=== PATIENT | male | born 1965 | race Caucasian/White ===

== ENCOUNTER 2020-11-06 12:13 | Day surgery (SDC) | payer OTHER, SELFPAY ==
[2020-11-06] VITALS (7 sets, daily range): BP systolic 119–138; BP diastolic 69–89; PULSE 60–73; RESP 9–16; TEMP 36.2–36.9; O2SAT 97–99; BMI 36.9
[2020-11-06] MEDS: LACTATED RINGERS 1,000 ML 200 ML IV (12:53)
--- NOTE | 2020-11-06 13:08 | PM.HP.1 ---
History of Present Illness History of Present Illness Date Patient Seen: 11/06/20 Time Patient Seen: 13:08 [place] [facility] [place]: The patient presents for colonoscopy following a positive fecal immuno chemical test. No personal or family history of colon cancer. On further history denies any recent gastrointestinal symptoms. No nausea, vomiting, abdominal pain, loss of appetite, unexplained weight loss, change in bowel habits, diarrhea, constipation, melena, hematochezia, or bright red blood per rectum. Patient History Medical History Hypertension Family & Social History Social History: household members spouse Tobacco & Substance use: Smoking Status Never smoker alcohol intake never Substance Use Type does not use Meds Home Medications and Allergies Home Medications Medication Instructions Recorded Confirmed Type sodium,potassium,mag sulfates 17.5 See Rx Instructions PO .COMPLEX 09/19/20 Rx gram-3.13 gram-1.6 gram oral soln #354 ml (Suprep Bowel Prep Kit) Potassimin 20 meq PO DIRECTED 11/06/20 11/06/20 History atorvastatin 20 mg PO DIRECTED 11/06/20 11/06/20 History chlorthalidone 50 mg PO DIRECTED 11/06/20 11/06/20 History Allergies Allergy/AdvReac Type Severity Reaction Status Date / Time No Known Drug Allergies Allergy Verified 11/06/20 12:30 Exam Vital Signs (past 8 hours): - 11/06/20 12:42 Temperature 98.5 F Pulse Rate 68 Respiratory Rate 16 Blood Pressure 129/80 Pulse Oximetry 98 Oxygen Delivery Method Room Air Narrative Exam Narrative: Constitutional-he is oriented to person, place and time. No apparent distress Cardiovascular- regular rate, no peripheral edema Pulmonary-unlabored respiratory effort, no audible wheezing Abdominal-soft, non-tender, non-distended Musculoskeletal-no cyanosis or clubbing Neurological-nonfocal, normal strength throughout, Skin-warm and dry Assessment & Plan Assessment and plan (1) Positive FIT (fecal immunochemical test): Status: Acute (2) Obese: Status: Acute Assessment & Plan narrative: The patient requires colonoscopy following a positive fecal immunochemical test. Technical details were discussed. Risks, benefits, alternatives explained. Risks including but not limited to myocardial infarction, aspiration, bleeding, pain, missed lesion, incomplete examination, need for further radiographic studies, colonic perforation, and need for major abdominal surgery were discussed. All questions were answered to their satisfaction, and they are in agreement with this plan. Time Spent With Patient Critical Care time: I spent a total of [] minutes of critical care time on this patient's care today; this time is exclusive of procedural time.
[2020-11-06] MEDS: fentaNYL 250 MCG/5 ML INJ IV (13:26)
[2020-11-06] MEDS: MIDAZOLAM 5 MG/5 ML VIAL IV (13:35)
--- NOTE | 2020-11-06 13:45 | PM.OP.EC ---
Operative Date/Time/Diagnoses Date of procedure: 11/06/20 Time of procedure: 13:45 Pre-op diagnosis: Positive fecal immunochemical test Post-op diagnosis: same Procedure & Clinicians Study performed: Colonoscopy Same procedure as scheduled: Yes Indications: Positive fecal immunochemical test Surgeon: Robin Machado Procedure Notes Procedure in detail: Medications: Conscious sedation using 9mg IV midazolam and 200mcg IV of fentanyl The history and physical was performed/updated and the patient is ASA class is 2. The procedure was discussed in detail with the patient. Potential risks complications including infection, bleeding, missed diagnosis, perforation, need for surgery, and were explained. Their questions were answered and informed consent was obtained. Patient was brought to the procedure room and placed standard monitoring equipment. The patient's vital signs were monitored continuously throughout the entire procedure. Prior to starting time-out was performed. The patient was placed in the left lateral recumbent position. Procedural sedation was administered. Examination began with a thorough inspection of the perianal area there was no evidence of fissures, fistulae, external hemorrhoids or cutaneous malignancy. The colonoscopy scope was then placed into the anal canal and was advanced to the cecum, which was identified by the ileocecal valve, the appendiceal orifice and the confluence of the taenia. The scope was then slowly withdrawn examining colon thoroughly in all directions, irrigating it of any residual stool. FINDINGS 1. No masses or polyps 2. Diverticulosis The patient tolerated the procedure well. They will be discharged once criteria are met. The prep was of good/excellent quality. The withdrawl time was 6 minutes. The sedation time was 24 minutes. Specimen(s): none sent Complications: none Impression: normal colonoscopy Post-procedure Recommendations: Colonscopy in 10 years Disposition: same day surgery
== END 2020-11-06 14:23 | disposition home or self-care (01) ==
PROVIDERS: PCP Family Medicine; Referring Provider Surgery; Visit Provider Surgery
PROC: 0DJD8ZZ Inspection of Lower Intestinal Tract, Via Natural or Artificial Opening Endoscopic (ICD-10-PCS; CPT 45378; principal; 2020-11-06 13:00)
DX: R19.5 Other fecal abnormalities (principal); K57.30 Diverticulosis of large intestine without perforation or abscess without bleeding; I10 Essential (primary) hypertension
CPT/HCPCS: 45378; 99152; J2250; J3010